=== PATIENT | male | born 1960 | race Caucasian/White ===

== ENCOUNTER 2017-04-03 14:32 | Emergency (ER) | payer BC ==
[2017-04-03 14:44] VITALS: BP 133/83
--- NOTE | 2017-04-03 16:16 | EDM.PDOC ---
ED HPI GENERAL MEDICAL PROBLEM - General Chief Complaint: Back Pain or Injury Stated Complaint: PELVIC PAIN, INJURY 2 DAYS AGO Time Seen by Provider: 04/03/17 15:58 Source of Information: Reports: Patient History Limitations: Reports: No Limitations - History of Present Illness INITIAL COMMENTS - FREE TEXT/NARRATIVE: Patient's 56-year-old male who presents ED complaining of pubic symphysis pain. Patient states while working on top of a trailer 2 days ago he accidentally stepped into a hole causing is one leg go down and the other leg to stay up. Had pain to the pelvic region that has gradually worsened throughout the course of the past 2 days. He was seen by chiropractor on 2 separate occasions with really no relief. There is concern that patient may have a pelvic injury and thus was instructed to come to ED for x-ray. Pain is worsened with weightbearing and palpation. No sensory/motor deficits distally. No history of pelvic fracture. He does have a right hip replacement. No additional complains. Treatments [employer]: Reports: Acetaminophen Middle Pelvic Pain Score (Numeric/FACES): 7 - Related Data Allergies Allergy/AdvReac Type Severity Reaction Status Date / Time acetaminophen Allergy Unknown Other Verified 04/03/17 15:01 [From Darvocet-N] propoxyphene Allergy Unknown Other Verified 04/03/17 15:01 [From Darvocet-N] Home Meds: Home Meds Acetaminophen/HYDROcodone [Chaffee 325-5 MG] 1 tab PO Q6H PRN #8 tablet 04/03/17 [ Rx] Past Medical History Musculoskeletal History: Reports: Arthritis, Back Pain, Chronic - Past Surgical History Musculoskeletal Surgical History: Reports: Hip Replacement, Knee Replacement Other Musculoskeletal Surgeries/Procedures:: bilateral rotator cuff repair, rt hip, rt ankle Social & Family History - Tobacco Use Smoking Status *Q: Never Smoker Second Hand Smoke Exposure: No - Caffeine Use Caffeine Use: Reports: Coffee - Alcohol Use Days Per Week of Alcohol Use: 7 Number of Drinks Per Day: 1 Total Drinks Per Week: 7 - Recreational Drug Use Recreational Drug Use: No ED ROS GENERAL - Review of Systems Review Of Systems: ROS reveals no pertinent complaints other than HPI. GI/Abdominal: Denies: Abdominal Pain : Reports: No Symptoms Musculoskeletal: Denies: Leg Pain Neurological: Reports: Difficulty Walking. Denies: Numbness, Tingling ED EXAM, GENERAL - Physical Exam Exam: See Below Exam Limited By: No Limitations General Appearance: Alert, WD/WN, No Apparent Distress Ears: Hearing Grossly Normal Nose: Normal Inspection Throat/Mouth: Normal Voice, No Airway Compromise Neck: Normal Inspection, Supple Respiratory/Chest: No Respiratory Distress, Lungs Clear, Normal Breath Sounds, No Accessory Muscle Use Cardiovascular: Normal Peripheral Pulses, Regular Rate, Rhythm, No Murmur Peripheral Pulses: 2+: Radial (L) GI/Abdominal: Normal Bowel Sounds, Soft, Non-Tender, No Organomegaly, No Distention, Other (Pain to the pubicsymphis with palpation. No swelling, bruising, bony abdomen eyes noted. Pain is localized.) (Male) Exam: Deferred Back Exam: Normal Inspection Extremities: Normal Inspection, Normal Range of Motion, Non-Tender, No Pedal Edema, Normal Capillary Refill Neurological: Alert, Oriented, CN II-XII Intact, Normal Cognition, No Motor/ Sensory Deficits Psychiatric: Normal Affect, Normal Mood Skin Exam: Warm, Dry, Intact, Normal Color Course - Vital Signs Last Recorded V/S: Last Vital Signs Temp 96.7 F 04/03/17 14:36 Pulse 80 04/03/17 14:36 Resp 16 04/03/17 14:36 BP 133/83 04/03/17 14:36 Pulse Ox 97 04/03/17 14:36 - Re-Assessments/Exams Free Text/Narrative Re-Assessment/Exam: X-ray of the pelvis will be obtained to evaluate for any pelvic abnormalities. X-ray of the pelvis did not reveal any acute bony abnormalities. Suspect patient may have torn the abductor ramus that attaches to the pelvic ring. Will discharge patient home with instructions as documented. PT referral has been placed. Departure - Departure Time of Disposition: 17:47 Disposition: Home, Self-Care 01 Condition: Good Clinical Impression: Pelvic pain in male - Discharge Information Prescriptions: Acetaminophen/HYDROcodone [Chaffee 325-5 MG] 1 tab PO Q6H PRN #8 tablet PRN Reason: Pain (Severe 7-10) Instructions: Muscle Strain, [id number], Pain Medicine Instructions, Easy-to- Read Referrals: Tran Maria PA [Primary Care Provider] - Forms: ED Department Discharge, ED Return to Work/School Form Additional Instructions: As discussed do believe you strain of the adductor ramus which attaches to the pelvic ring. Treatment is symptomatic care at this point. This includes ice to affected area as needed. Refrain from any activities that cause worsening pain. Take Tylenol and ibuprofen in alternating fashion for discomfort. Presents here pain take Chaffee one tab every [address] as [address] not drive while taking the Chaffee. Referral for physical therapy has been placed. They will call you with appointment time. Return to ED for any new or worsening symptoms.
--- NOTE | 2017-04-04 08:50 | CR ---
Pelvis: AP view of the pelvis was obtained. Comparison: Previous pelvis and right hip exam of 10/11/16 is available. Right hip prosthesis is seen. Degenerative change is partially visualized within the lower lumbar spine. Sacroiliac joints appear unremarkable. Detached bony density noted off the superior left acetabulum which appears stable from prior exam. Small cyst is noted within the superior left acetabulum which also remains stable. No acute fracture or other abnormality is identified. Incidental vascular calcification is present. Impression: 1. Findings as noted above. Nothing acute is identified. Diagnostic code #2
== END 2017-04-03 18:03 | disposition home or self-care (01) ==
LOC: JD.ED 14:32
DX: R10.2 Pelvic and perineal pain (principal); Z96.649 Presence of unspecified artificial hip joint; Z96.659 Presence of unspecified artificial knee joint; Z88.6 Allergy status to analgesic agent
CPT/HCPCS: 72170; 72170-26; 99283; 99284